=== PATIENT | female | born 1990 | race Caucasian/White ===

== ENCOUNTER 2016-10-07 11:12 | Day surgery (SDC) | payer BC ==
[~2016-10-07] VITALS: Ht 167.6 cm; Wt 78.0 kg
[2016-10-07 12:12] VITALS: Ht 167.6 cm; Wt 78.0 kg
[2016-10-07] MEDS ORDERED: ESOM40CA PO (12:16)
[2016-10-07 12:32] VITALS: BP 124/74; PULSE 91; RESP 20
[2016-10-07] MEDS ORDERED: LIDOCAINE 4% SOLUTION 50 ML BTL ONE (12:49)
[2016-10-07] MEDS ORDERED: FENTAnyl 50 MCG/ML VIAL ONE (13:59)
[2016-10-07] MEDS ORDERED: MIDAZOLAM 1 MG/ML 2 ML INJ ONE ×2 (13:59→14:00)
[2016-10-07 14:08] VITALS: BP 109/66; PULSE 76; RESP 18
--- NOTE | 2016-10-07 17:33 | GILP ---
DATE OF PROCEDURE: 10/07/2016 PREOPERATIVE DIAGNOSIS: Gastroesophageal reflux symptoms. POSTOPERATIVE DIAGNOSIS: Severe duodenitis with salted appearance, and GE junction there was 1 eros ion with chronic esophagitis features. PROCEDURE DONE: Esophagogastroduodenoscopy biopsy of the distal esophagus, GE junction and duodenum . SURGEON: Korey Cui MD DESCRIPTION OF PROCEDURE: The patient was put in left lateral decubitus after obtaining informed co nsent. Posterior pharynx anesthetized with 4% Xylocaine very carefully. Then, the patient was tay annette with 4 mg of IV Versed and 100 mcg of fentanyl in small doses. Very carefully advanced an Olympus video upper endoscope into the esophagus, stomach and duodenum. Entire esophagus examined. At GE junction, there was a raised area with erosion, chronic inflammato ry changes in one area noted. This was photographed with narrow band also, biopsies were done later . By retroflexion, GE junction was unremarkable. Fundus was normal. Body and antrum of the stomac h normal. Examination of the pylorus easily traversed, it was normal. Duodenum showed duodenitis, salted appe arance from first part to third part. Photography done. Biopsies done to rule out causes of duoden itis. Then, the scope was slowly withdrawn. The patient had no complication. PLAN: Will be to await for biopsy report. Follow up as outpatient in 2 weeks. Dictated By: KOREY ELMORE Conf#: [id number] DID#: [id number] CC: YUMI MODI MD;*EndCC*
== END 2016-10-07 16:43 | disposition home or self-care (01) ==
LOC: GIL 11:12
PROVIDERS: ATTEND Internal Medicine
DX: K29.50 Unspecified chronic gastritis without bleeding (principal); K29.80 Duodenitis without bleeding
CPT/HCPCS: 43239; 84703; 88305; 88312; 88313; J2250; J3010; Z7610